=== PATIENT | female | born 1985 | race Caucasian/White ===

== ENCOUNTER 2018-04-15 19:16 | Emergency (ER) | payer OTHER ==
[~2018-04-15] VITALS: Ht 165.1 cm; Wt 68.0 kg
[2018-04-15] MEDS ORDERED: TIROSINT125 MCG PO (19:41)
== END 2018-04-15 22:48 | disposition home or self-care (01) ==
LOC: ER 19:16
DX: O26.892 Other specified pregnancy related conditions, second trimester (principal); J11.1 Influenza due to unidentified influenza virus with other respiratory manifestations; Z34.82 Encounter for supervision of other normal pregnancy, second trimester

== ENCOUNTER 2018-09-06 07:15 | Inpatient (IN) | payer OTHER ==
[~2018-09-06] VITALS: Ht 157.5 cm; Wt 2.7 kg
[~2018-09-06 07:15] MED LIST: TIROSINT125 MCG PO
[2018-09-11] MEDS ORDERED: PRENATAL CAPLE1 EAC1 PO (09:04)
[2018-09-11] MEDS ORDERED: NAPR500T14 PO (09:07)
== END 2018-09-11 11:59 | disposition home or self-care (01) | DRG 783 ==
LOC: OBS/DEL 07:15 → LDR 09-07 21:22 → O/R 09-09 11:01 → OB/GYN 09-09 14:21
PROVIDERS: ADMIT Obstetrics & Gynecology
PROC: 0UL70ZZ Occlusion of Bilateral Fallopian Tubes, Open Approach (ICD-10-PCS; 2018-09-09)
PROC: 4A0HXFZ Measurement of Products of Conception, Cardiac Rhythm, External Approach (ICD-10-PCS; 2018-09-09)
PROC: 10D00Z1 Extraction of Products of Conception, Low, Open Approach (ICD-10-PCS; principal; 2018-09-09 10:00)
DX: O82 Encounter for cesarean delivery without indication (principal); O60.14X0 Preterm labor third trimester with preterm delivery third trimester, not applicable or unspecified; O23.33 Infections of other parts of urinary tract in pregnancy, third trimester; Z3A.36 36 weeks gestation of pregnancy; Z37.0 Single live birth; Z30.2 Encounter for sterilization